=== PATIENT | female | born 1955 | race Caucasian/White ===

== ENCOUNTER 2017-10-22 08:57 | Outpatient (CLI) | payer OTHER ==
[~2017-10-22 08:57] MED LIST: ASPI-611 PO; MULT-1179 PO; ROSU10TA PO
[2017-10-22 11:59] LABS: ANION GAP 8 (8-16); CHLORIDE 106 MMOL/L (99-107); GLUCOSE 90 MG/DL (70-104); POTASSIUM 4.3 MMOL/L (3.5-5.1); SODIUM 143 MMOL/L (135-145); TOTAL CARBON DIOXIDE 29.3 MMOL/L (24-32)
[2017-10-22 12:00] LABS: ALANINE AMINOTRANSFERASE 23 U/L (12-78); ALBUMIN 3.5 G/DL (3.4-5.0); ALKALINE PHOSPHATASE 45 IU/L (46-116); ASPARTATE AMINO TRANSFERASE 16 U/L (10-37); BILIRUBIN,TOTAL 0.4 MG/DL (0.1-1.0); BLOOD UREA NITROGEN 13 MG/DL (7-18); BUN/CREATININE RATIO 16.7 (6.6-38.0); CALCIUM 9.1 MG/DL (8.5-10.1); CHOL/HDL RATIO 3.3 (0.00-4.99); CHOLESTEROL 287 MG/DL (0-200); CREATININE 0.78 MG/DL (0.40-0.90); HDL CHOLESTEROL 87 MG/DL (35-60); LDL CHOLESTEROL 185 MG/DL (50-100); TOTAL PROTEIN 6.9 G/DL (6.4-8.2); TRIGLYCERIDES 46 MG/DL (20-135); eGFR 75 ML/MIN
== END 2017-10-22 23:59 | disposition home or self-care (01) ==
LOC: LAB 08:57
PROVIDERS: ATTEND Physician Assistant Medical
DX: E78.5 Hyperlipidemia, unspecified (principal); R79.89 Other specified abnormal findings of blood chemistry; Z87.891 Personal history of nicotine dependence
CPT/HCPCS: 36415; 80053; 80061

== ENCOUNTER 2017-10-22 09:02 | Outpatient (CLI) | payer OTHER ==
[2017-10-22 11:47] LABS: PHOSPHORUS 4.4 MG/DL (2.3-4.5)
== END 2017-10-22 23:59 | disposition home or self-care (01) ==
LOC: LAB 09:02
PROVIDERS: ATTEND Physician Assistant
DX: E55.9 Vitamin D deficiency, unspecified (principal); E78.01 Familial hypercholesterolemia; K90.9 Intestinal malabsorption, unspecified; M81.0 Age-related osteoporosis without current pathological fracture; Z87.891 Personal history of nicotine dependence
CPT/HCPCS: 36415; 82306; 82607; 82746; 83735; 84100

== ENCOUNTER 2018-04-16 08:35 | Outpatient (CLI) | payer OTHER ==
[2018-04-16 11:00] LABS: ALANINE AMINOTRANSFERASE 21 U/L (12-78); ALBUMIN 3.8 G/DL (3.4-5.0); ALKALINE PHOSPHATASE 51 IU/L (46-116); ANION GAP 8 (8-16); ASPARTATE AMINO TRANSFERASE 20 U/L (10-37); BILIRUBIN,TOTAL 0.5 MG/DL (0.1-1.0); BLOOD UREA NITROGEN 11 MG/DL (7-18); BUN/CREATININE RATIO 14.9 (6.6-38.0); CALCIUM 9.3 MG/DL (8.5-10.1); CHLORIDE 105 MMOL/L (99-107); CHOL/HDL RATIO 4.2 (0.00-4.99); CHOLESTEROL 366 MG/DL (0-200); CREATININE 0.74 MG/DL (0.40-0.90); GLUCOSE 92 MG/DL (70-104); HDL CHOLESTEROL 87 MG/DL (35-60); LDL CHOLESTEROL 254 MG/DL (50-100); POTASSIUM 4.2 MMOL/L (3.5-5.1); SODIUM 142 MMOL/L (135-145); TOTAL PROTEIN 7.5 G/DL (6.4-8.2); TRIGLYCERIDES 67 MG/DL (20-135); eGFR 79 ML/MIN
== END 2018-04-16 23:59 | disposition home or self-care (01) ==
LOC: LAB 08:35
PROVIDERS: ATTEND Internal Medicine Cardiovascular Disease
DX: E78.5 Hyperlipidemia, unspecified (principal); Z72.89 Other problems related to lifestyle; Z87.891 Personal history of nicotine dependence; Z88.5 Allergy status to narcotic agent; Z96.651 Presence of right artificial knee joint; Z98.890 Other specified postprocedural states
CPT/HCPCS: 36415; 80053; 80061

== ENCOUNTER 2018-04-29 12:49 | Outpatient (CLI) | payer OTHER | END 2018-04-29 23:59 | disposition home or self-care (01) | LOC: CARD DIAG 12:49 | PROVIDERS: ATTEND Internal Medicine Cardiovascular Disease | DX: I08.0 Rheumatic disorders of both mitral and aortic valves (principal); E78.49 Other hyperlipidemia; R07.89 Other chest pain; Z96.651 Presence of right artificial knee joint; Z96.662 Presence of left artificial ankle joint; Z79.82 Long term (current) use of aspirin; Z87.891 Personal history of nicotine dependence | CPT/HCPCS: 93306 ==

== ENCOUNTER 2018-06-17 12:43 | Outpatient (CLI) | payer OTHER | END 2018-06-17 23:59 | disposition home or self-care (01) | LOC: VAS 12:43 | PROVIDERS: ATTEND Internal Medicine Cardiovascular Disease | DX: R55 Syncope and collapse (principal); E78.5 Hyperlipidemia, unspecified; Z87.891 Personal history of nicotine dependence; Z96.651 Presence of right artificial knee joint; Z72.89 Other problems related to lifestyle; Z98.890 Other specified postprocedural states; Z86.73 Personal history of transient ischemic attack (TIA), and cerebral infarction without residual deficits; Z88.5 Allergy status to narcotic agent; Z88.8 Allergy status to other drugs, medicaments and biological substances | CPT/HCPCS: 93880 ==

== ENCOUNTER 2018-08-06 09:04 | Outpatient (CLI) | payer OTHER ==
[~2018-08-06] VITALS: Ht 165.1 cm; Wt 63.0 kg
[2018-08-06] MEDS ORDERED: aminophylline 250mg/10ml inj. IV PRN (10:20)
[2018-08-06] MEDS ORDERED: nitroGLYCERIN 0.4mg SUBLingual tab SL PRN (10:20)
[2018-08-06] MEDS ORDERED: aminophylline inj. 10 ML IV ONE (11:20)
[2018-08-06] MEDS ORDERED: regadenoson 0.4mg/5ml syringe IV ONE (11:20)
[2018-08-06 11:30] VITALS: BP 130/50
[2018-08-06 11:49] VITALS: BP_SYST 120; BP_SYST 141; BP_DIAS 58; BP_DIAS 76
[2018-08-06] MEDS: regadenoson 0.4mg/5ml syringe IV PRN ×2 (11:49→12:46)
[2018-08-06 11:50] VITALS: BP_SYST 118; BP_DIAS 58; BP_DIAS 59
[2018-08-06 11:51] VITALS: BP_SYST 113; BP_SYST 119; BP_DIAS 52; BP_DIAS 56
[2018-08-06 11:52] VITALS: BP 107/56
[2018-08-06 11:53] VITALS: BP_SYST 116; BP_SYST 121; BP_DIAS 57; BP_DIAS 58
== END 2018-08-06 23:59 | disposition home or self-care (01) ==
LOC: RAD 09:04
PROVIDERS: ATTEND Internal Medicine Cardiovascular Disease
DX: R07.9 Chest pain, unspecified (principal); Z98.890 Other specified postprocedural states; Z88.5 Allergy status to narcotic agent
CPT/HCPCS: 78452; 93017; A9500; J0280

== ENCOUNTER 2018-08-06 09:07 | Outpatient (CLI) | payer OTHER ==
[2018-08-06 11:05] LABS: CLARITY,URINE SLIGHTLY CLOUDY (Clear); COLOR,URINE YELLOW (Yellow); GLUCOSE, URINE NEGATIVE (Neg); KETONES,URINE NEGATIVE (Neg); LEUKOCYTE ESTERASE ,URINE NEGATIVE (Neg); NITRITES, URINE NEGATIVE (Neg); OCCULT BLOOD,URINE NEGATIVE (Neg); PH,URINE 5.5 (4.8-8.0); PROTEIN,URINE NEGATIVE (Neg)
[2018-08-06 11:07] LABS: UA COLLECTION TYPE CLN CATCH MIDSTREAM
[2018-08-06 11:09] LABS: BASOPHILS # (AUTO) 0.1 X10'3 (0-0.2); BASOPHILS % (AUTO) 1.7 % (0-1); EOSINOPHILS # (AUTO) 0.2 X10'3 (0-0.9); EOSINOPHILS % (AUTO) 4.7 % (0-6); HEMATOCRIT 35.6 % (35.0-45.0); HEMOGLOBIN 11.7 g/dl (12.0-16.0); LYMPHOCYTES # (AUTO) 1.3 X10'3 (1.1-4.8); MEAN CORPUSCULAR HEMOGLOBIN 28.1 PG (27.0-31.0); MEAN CORPUSCULAR VOLUME 85.1 FL (78-98); MEAN PLATELET VOLUME 9.2 FL (7.4-10.4); MONOCYTES # (AUTO) 0.5 X10'3 (0-0.9); MONOCYTES % (AUTO) 9.7 % (2-12); NEUTROPHILS # (AUTO) 2.9 X10'3 (1.8-7.7); NEUTROPHILS % (AUTO) 57.9 % (42-75); PLATELET COUNT 290 X10'3 (140-440); RED BLOOD COUNT 4.18 X10'6 (4.20-5.60); RED CELL DISTRIBUTION WIDTH 14.1 % (11.5-14.5)
[2018-08-06 11:19] LABS: BACTERIA,URINE 1+ /HPF (Neg); MUCUS STRANDS MODERATE /LPF (Neg); RBC,URINE 0-2 /HPF (0-2); SQUAMOUS EPITHELIAL CELL,UR MANY /LPF (FEW); WBC,URINE 0-4 /HPF (0-4)
[2018-08-06 11:30] VITALS: BP 130/50
[2018-08-06 11:31] LABS: ALANINE AMINOTRANSFERASE 22 U/L (12-78); ALBUMIN 3.7 G/DL (3.4-5.0); ALBUMIN/GLOBULIN RATIO 1.1 (1.1-1.5); ALKALINE PHOSPHATASE 48 IU/L (46-116); ANION GAP 6 (8-16); ASPARTATE AMINO TRANSFERASE 18 U/L (10-37); BILIRUBIN,TOTAL 0.5 MG/DL (0.1-1.0); BLOOD UREA NITROGEN 16 MG/DL (7-18); BUN/CREATININE RATIO 21.1 (6.6-38.0); CALCIUM 9.2 MG/DL (8.5-10.1); CHLORIDE 105 MMOL/L (99-107); CHOL/HDL RATIO 4.3 (0.00-4.99); CHOLESTEROL 356 MG/DL (0-200); CREATININE 0.76 MG/DL (0.40-0.90); GLUCOSE 88 MG/DL (70-104); HDL CHOLESTEROL 82 MG/DL (35-60); LDL CHOLESTEROL 258 MG/DL (50-100); SODIUM 140 MMOL/L (135-145); TOTAL CARBON DIOXIDE 29.3 MMOL/L (24-32); TOTAL PROTEIN 7.2 G/DL (6.4-8.2); TRIGLYCERIDES 75 MG/DL (20-135); eGFR 77 ML/MIN
[2018-08-06 11:49] VITALS: BP_SYST 120; BP_SYST 141; BP_DIAS 58; BP_DIAS 76
[2018-08-06 11:50] VITALS: BP_SYST 118; BP_DIAS 58; BP_DIAS 59
[2018-08-06 11:51] VITALS: BP_SYST 113; BP_SYST 119; BP_DIAS 52; BP_DIAS 56
[2018-08-06 11:52] VITALS: BP 107/56
[2018-08-06 11:53] VITALS: BP_SYST 116; BP_SYST 121; BP_DIAS 57; BP_DIAS 58
--- NOTE | 2018-08-06 12:47 | NUR ---
Accidentally charted Lexiscan procedure under the LAB visit. Re-entered Lexiscan procedure under visit ending in [id number].
== END 2018-08-06 23:59 | disposition home or self-care (01) ==
LOC: LAB 09:07
PROVIDERS: ATTEND Family Medicine
DX: E78.5 Hyperlipidemia, unspecified (principal); I35.0 Nonrheumatic aortic (valve) stenosis; M81.0 Age-related osteoporosis without current pathological fracture; Z76.89 Persons encountering health services in other specified circumstances; Z72.89 Other problems related to lifestyle; Z98.84 Bariatric surgery status; Z88.5 Allergy status to narcotic agent
CPT/HCPCS: 80053; 80061; 81001; 82607; 82746; 84439; 84443; 85025

== ENCOUNTER 2018-09-26 09:07 | Day surgery (SDC) | payer OTHER ==
[~2018-09-26] VITALS: Ht 165.1 cm; Wt 61.4 kg
[~2018-09-26 09:07] MED LIST changes: -ROSU10TA PO; +ROSU10TA2 PO
[2018-09-26 09:15] VITALS: BP 113/82
[2018-09-26] MEDS ORDERED: MIDAZolam 5mg/5ml vial ONE (09:17)
[2018-09-26] MEDS ORDERED: fentaNYL/PF 50MCG/1 ML 2ML syringe ONE (09:17)
[2018-09-26] MEDS ORDERED: ASCO500C15 PO (09:34)
[2018-09-26 10:29] VITALS: BP 122/43
[2018-09-26 10:34] VITALS: BP 82/40
[2018-09-26 10:43] VITALS: BP 89/43
[2018-09-26 10:52] VITALS: BP 147/71
[2018-09-26 11:02] VITALS: BP 106/67
== END 2018-09-26 11:19 | disposition home or self-care (01) ==
LOC: GI LAB 09:07
PROVIDERS: ATTEND Internal Medicine Gastroenterology
DX: Z12.11 Encounter for screening for malignant neoplasm of colon (principal); D12.5 Benign neoplasm of sigmoid colon; D12.2 Benign neoplasm of ascending colon; K57.30 Diverticulosis of large intestine without perforation or abscess without bleeding; Z98.84 Bariatric surgery status
CPT/HCPCS: 45380; 45385; 99152; J2250; J3010; J7030; 99153; A4620; C1773

== ENCOUNTER → 2018-10-09 | Outpatient (CLI) | payer OTHER ==
[~2018-10-09] MED LIST changes: +ASCO500C15 PO; -ASPI-611 PO; -MULT-1179 PO; -ROSU10TA2 PO
== END | disposition home or self-care (01) ==
LOC: RAD 12:02
PROVIDERS: ATTEND Registered Nurse
DX: M19.072 Primary osteoarthritis, left ankle and foot (principal); E78.5 Hyperlipidemia, unspecified; Z88.5 Allergy status to narcotic agent; Z88.2 Allergy status to sulfonamides
CPT/HCPCS: 73610

== ENCOUNTER 2019-01-31 05:30 | Emergency (ER) | payer OTHER ==
[~2019-01-31] VITALS: Ht 165.1 cm; Wt 63.0 kg
[2019-01-31] MEDS ORDERED: proparacaine 0.5% ophthalmic drops 15ml EACHEYE ONE (05:40)
[2019-01-31] MEDS ORDERED: HYDR-4353 PO (05:59)
[2019-01-31] MEDS ORDERED: GENOO OP (05:59)
[2019-01-31] MEDS ORDERED: levoFLOXACIN-Levaquin 750MG/D5 150 ML IV STA (06:04)
[2019-01-31 06:05] VITALS: BP 123/68
== END 2019-01-31 06:07 | disposition home or self-care (01) ==
LOC: ER 05:31
DX: S05.02XA Injury of conjunctiva and corneal abrasion without foreign body, left eye, initial encounter (principal); Z88.5 Allergy status to narcotic agent; Z79.899 Other long term (current) drug therapy; X58.XXXA Exposure to other specified factors, initial encounter; Y93.89 Activity, other specified; Y92.89 Other specified places as the place of occurrence of the external cause; Y99.9 Unspecified external cause status
CPT/HCPCS: 99283

== ENCOUNTER 2019-04-14 09:01 | Outpatient (CLI) | payer OTHER ==
[~2019-04-14 09:01] MED LIST changes: +GENOO OP
[2019-04-14 09:41] LABS: BASOPHILS # (AUTO) 0.1 X10'3 (0-0.2); BASOPHILS % (AUTO) 1.8 % (0-1); EOSINOPHILS # (AUTO) 0.2 X10'3 (0-0.9); EOSINOPHILS % (AUTO) 3.9 % (0-6); HEMATOCRIT 36.1 % (35.0-45.0); HEMOGLOBIN 11.8 g/dl (12.0-16.0); LYMPHOCYTES # (AUTO) 1.3 X10'3 (1.1-4.8); MEAN CORPUSCULAR HEMOGLOBIN 27.6 PG (27.0-31.0); MEAN CORPUSCULAR HGB CONC 32.6 g/dL (33.0-36.5); MEAN CORPUSCULAR VOLUME 84.7 FL (78-98); MEAN PLATELET VOLUME 8.9 FL (7.4-10.4); MONOCYTES # (AUTO) 0.5 X10'3 (0-0.9); MONOCYTES % (AUTO) 9.7 % (2-12); NEUTROPHILS # (AUTO) 2.8 X10'3 (1.8-7.7); NEUTROPHILS % (AUTO) 57.6 % (42-75); PLATELET COUNT 261 X10'3 (140-440); RED BLOOD COUNT 4.26 X10'6 (4.20-5.60); RED CELL DISTRIBUTION WIDTH 15.4 % (11.5-14.5); WHITE BLOOD COUNT 4.9 X10'3 (4.5-11.0)
[2019-04-14 09:43] LABS: CLARITY,URINE CLEAR (Clear); COLOR,URINE YELLOW (Yellow); GLUCOSE, URINE NEGATIVE (Neg); KETONES,URINE NEGATIVE (Neg); LEUKOCYTE ESTERASE ,URINE NEGATIVE (Neg); NITRITES, URINE NEGATIVE (Neg); OCCULT BLOOD,URINE NEGATIVE (Neg); PROTEIN,URINE NEGATIVE (Neg); UROBILINOGEN,URINE 0.2 E.U/dL (0.2-1.0)
[2019-04-14 09:50] LABS: UA COLLECTION TYPE CLN CATCH MIDSTREAM
[2019-04-14 10:21] LABS: % IRON SATURATION 8 % (11-46); IRON 38 UG/DL (49-151); TOTAL IRON BINDING CAPACITY 450 UG/DL (259-388)
[2019-04-14 10:33] LABS: ALANINE AMINOTRANSFERASE 17 U/L (12-78); ALBUMIN 3.8 G/DL (3.4-5.0); ALKALINE PHOSPHATASE 53 IU/L (46-116); ANION GAP 9 (8-16); ASPARTATE AMINO TRANSFERASE 20 U/L (10-37); BILIRUBIN,TOTAL 0.3 MG/DL (0.1-1.0); BLOOD UREA NITROGEN 18 MG/DL (7-18); CALCIUM 8.9 MG/DL (8.5-10.1); CHLORIDE 104 MMOL/L (99-107); CHOL/HDL RATIO 4.9 (0.00-4.99); CHOLESTEROL 358 MG/DL (0-200); CREATININE 0.75 MG/DL (0.40-0.90); FERRITIN 10 NG/ML (8-252); GLUCOSE 87 MG/DL (70-104); HDL CHOLESTEROL 73 MG/DL (35-60); LDL CHOLESTEROL 262 MG/DL (50-100); POTASSIUM 4.1 MMOL/L (3.5-5.1); SODIUM 141 MMOL/L (135-145); TOTAL CARBON DIOXIDE 28.5 MMOL/L (24-32); TOTAL PROTEIN 7.7 G/DL (6.4-8.2); TRIGLYCERIDES 61 MG/DL (20-135); eGFR 78 ML/MIN
== END 2019-04-14 23:59 | disposition home or self-care (01) ==
LOC: LAB 09:01
PROVIDERS: ATTEND Family Medicine
DX: E16.2 Hypoglycemia, unspecified (principal); R10.10 Upper abdominal pain, unspecified; E28.39 Other primary ovarian failure; E78.5 Hyperlipidemia, unspecified; R53.83 Other fatigue
CPT/HCPCS: 36415; 80053; 80061; 81003; 82607; 82728; 82746; 83540; 83550; 84439; 84443; 85025

== ENCOUNTER 2019-04-16 08:48 | Outpatient (CLI) | payer OTHER | END 2019-04-16 23:59 | disposition home or self-care (01) | LOC: RAD 08:48 | PROVIDERS: ATTEND Family Medicine | DX: R10.10 Upper abdominal pain, unspecified (principal); Z90.49 Acquired absence of other specified parts of digestive tract | CPT/HCPCS: 76700 ==

== ENCOUNTER 2019-07-07 13:34 | Outpatient (CLI) | payer OTHER | END 2019-07-07 23:59 | disposition home or self-care (01) | LOC: CARD DIAG 13:34 | PROVIDERS: ATTEND Internal Medicine Cardiovascular Disease | DX: I35.0 Nonrheumatic aortic (valve) stenosis (principal) | CPT/HCPCS: 93306 ==

== ENCOUNTER 2019-08-07 14:13 | Emergency (ER) | payer OTHER ==
[~2019-08-07] VITALS: Ht 165.1 cm; Wt 64.0 kg
[2019-08-07 14:22] VITALS: BP 110/65
[2019-08-07] MEDS ORDERED: pilocarpine 2% ophthalmic drops 15ml RIGHTEYE ONE (15:35)
== END 2019-08-07 16:48 | disposition home or self-care (01) ==
LOC: ER 14:14
DX: H53.8 Other visual disturbances (principal); Z88.5 Allergy status to narcotic agent; Z79.899 Other long term (current) drug therapy
CPT/HCPCS: 99283

== ENCOUNTER 2019-08-11 09:55 | Outpatient (CLI) | payer OTHER ==
[2019-08-11 11:07] LABS: BASOPHILS % (AUTO) 0.6 % (0-1); EOSINOPHILS # (AUTO) 0.2 X10'3 (0-0.9); EOSINOPHILS % (AUTO) 3.1 % (0-6); HEMATOCRIT 36.9 % (35.0-45.0); HEMOGLOBIN 12.2 g/dl (12.0-16.0); LYMPHOCYTES # (AUTO) 1.3 X10'3 (1.1-4.8); LYMPHOCYTES % (AUTO) 23.9 % (21-51); MEAN CORPUSCULAR HEMOGLOBIN 28.2 PG (27.0-31.0); MEAN CORPUSCULAR VOLUME 85.5 FL (78-98); MEAN PLATELET VOLUME 9.2 FL (7.4-10.4); MONOCYTES # (AUTO) 0.4 X10'3 (0-0.9); MONOCYTES % (AUTO) 6.9 % (2-12); NEUTROPHILS # (AUTO) 3.5 X10'3 (1.8-7.7); NEUTROPHILS % (AUTO) 65.5 % (42-75); PLATELET COUNT 292 X10'3 (140-440); RED BLOOD COUNT 4.32 X10'6 (4.20-5.60); RED CELL DISTRIBUTION WIDTH 14.2 % (11.5-14.5); WHITE BLOOD COUNT 5.3 X10'3 (4.5-11.0)
[2019-08-11 11:40] LABS: % IRON SATURATION 25 % (11-46); IRON 105 UG/DL (49-151); TOTAL IRON BINDING CAPACITY 415 UG/DL (259-388)
== END 2019-08-11 23:59 | disposition home or self-care (01) ==
LOC: LAB 09:55
PROVIDERS: ATTEND Family Medicine
DX: E53.8 Deficiency of other specified B group vitamins (principal); E78.5 Hyperlipidemia, unspecified
CPT/HCPCS: 36415; 82607; 82746; 83540; 83550; 85025

== ENCOUNTER 2020-04-22 11:36 | Outpatient (CLI) | payer BC ==
[~2020-04-22 11:36] MED LIST changes: -ASCO500C15 PO; +ASCO500C18 PO
[2020-04-22 12:42] LABS: CLARITY,URINE CLEAR (Clear); COLOR,URINE YELLOW (Yellow); GLUCOSE, URINE NEGATIVE (Neg); KETONES,URINE NEGATIVE (Neg); LEUKOCYTE ESTERASE ,URINE NEGATIVE (Neg); NITRITES, URINE NEGATIVE (Neg); OCCULT BLOOD,URINE NEGATIVE (Neg); PH,URINE 5.5 (4.8-8.0); PROTEIN,URINE NEGATIVE (Neg); UA COLLECTION TYPE CLN CATCH MIDSTREAM; UROBILINOGEN,URINE 0.2 E.U/dL (0.2-1.0)
[2020-04-22 13:02] LABS: BASOPHILS # (AUTO) 0.1 X10'3 (0-0.2); EOSINOPHILS # (AUTO) 0.4 X10'3 (0-0.9); EOSINOPHILS % (AUTO) 5.5 % (0-6); HEMATOCRIT 39.1 % (35.0-45.0); LYMPHOCYTES # (AUTO) 2.1 X10'3 (1.1-4.8); LYMPHOCYTES % (AUTO) 28.4 % (21-51); MEAN CORPUSCULAR HEMOGLOBIN 30.2 PG (27.0-31.0); MEAN CORPUSCULAR HGB CONC 33.2 g/dL (33.0-36.5); MEAN PLATELET VOLUME 9.5 FL (7.4-10.4); MONOCYTES # (AUTO) 0.6 X10'3 (0-0.9); MONOCYTES % (AUTO) 8.7 % (2-12); NEUTROPHILS # (AUTO) 4.1 X10'3 (1.8-7.7); NEUTROPHILS % (AUTO) 56.4 % (42-75); PLATELET COUNT 306 X10'3 (140-440); RED CELL DISTRIBUTION WIDTH 13.3 % (11.5-14.5); WHITE BLOOD COUNT 7.3 X10'3 (4.5-11.0)
[2020-04-22 13:23] LABS: % IRON SATURATION 36 % (11-46); IRON 128 UG/DL (49-151); TOTAL IRON BINDING CAPACITY 358 UG/DL (259-388)
[2020-04-22 13:35] LABS: ALANINE AMINOTRANSFERASE 36 U/L (12-78); ALBUMIN 4.3 G/DL (3.4-5.0); ALBUMIN/GLOBULIN RATIO 1.2 (1.1-1.5); ALKALINE PHOSPHATASE 53 IU/L (46-116); ANION GAP 6 (8-16); ASPARTATE AMINO TRANSFERASE 27 U/L (10-37); BILIRUBIN,TOTAL 0.4 MG/DL (0.1-1.0); BLOOD UREA NITROGEN 12 MG/DL (7-18); BUN/CREATININE RATIO 15.2 (6.6-38.0); CALCIUM 9.1 MG/DL (8.5-10.1); CHLORIDE 104 MMOL/L (99-107); CHOLESTEROL 376 MG/DL (0-200); CREATININE 0.79 MG/DL (0.40-0.90); FERRITIN 46 NG/ML (8-252); GLUCOSE 91 MG/DL (70-104); HDL CHOLESTEROL 93 MG/DL (35-60); LDL CHOLESTEROL 264 MG/DL (50-100); POTASSIUM 3.8 MMOL/L (3.5-5.1); SODIUM 141 MMOL/L (135-145); TOTAL CARBON DIOXIDE 31.4 MMOL/L (24-32); TOTAL PROTEIN 7.9 G/DL (6.4-8.2); TRIGLYCERIDES 60 MG/DL (20-135); eGFR 73 ML/MIN
== END 2020-04-22 23:59 | disposition home or self-care (01) ==
LOC: LAB 11:36
PROVIDERS: ATTEND Family Medicine
DX: E78.5 Hyperlipidemia, unspecified (principal); R74.8 Abnormal levels of other serum enzymes; E53.8 Deficiency of other specified B group vitamins; E16.2 Hypoglycemia, unspecified; R53.83 Other fatigue; E28.39 Other primary ovarian failure; N30.90 Cystitis, unspecified without hematuria; E07.9 Disorder of thyroid, unspecified; R10.10 Upper abdominal pain, unspecified
CPT/HCPCS: 36415; 80053; 80061; 81003; 82607; 82728; 82746; 83540; 83550; 84439; 84443; 85025

== ENCOUNTER 2020-05-22 12:35 | Emergency (ER) | payer OTHER ==
[~2020-05-22] VITALS: Ht 165.1 cm; Wt 64.1 kg
[2020-05-22 12:54] VITALS: BP 140/75
== END 2020-05-22 13:36 | disposition home or self-care (01) ==
LOC: ER 12:35
DX: S69.80XA Other specified injuries of unspecified wrist, hand and finger(s), initial encounter (principal); Z98.890 Other specified postprocedural states; Z88.5 Allergy status to narcotic agent; Z88.8 Allergy status to other drugs, medicaments and biological substances; Z79.899 Other long term (current) drug therapy; X58.XXXA Exposure to other specified factors, initial encounter; Y93.89 Activity, other specified; Y92.89 Other specified places as the place of occurrence of the external cause; Y99.8 Other external cause status
CPT/HCPCS: 99281

== ENCOUNTER 2020-06-25 05:37 | Day surgery (SDC) | payer BC, MEDICARE ==
[2020-06-14 11:33] LABS: BASOPHILS # (AUTO) 0.1 X10'3 (0-0.2); BASOPHILS % (AUTO) 1.1 % (0-1); EOSINOPHILS # (AUTO) 0.3 X10'3 (0-0.9); EOSINOPHILS % (AUTO) 4.6 % (0-6); LYMPHOCYTES # (AUTO) 1.6 X10'3 (1.1-4.8); LYMPHOCYTES % (AUTO) 25.4 % (21-51); MEAN CORPUSCULAR HEMOGLOBIN 29.9 PG (27.0-31.0); MEAN CORPUSCULAR HGB CONC 32.6 g/dL (33.0-36.5); MEAN CORPUSCULAR VOLUME 91.9 FL (78-98); MONOCYTES # (AUTO) 0.5 X10'3 (0-0.9); MONOCYTES % (AUTO) 8.1 % (2-12); NEUTROPHILS # (AUTO) 3.7 X10'3 (1.8-7.7); NEUTROPHILS % (AUTO) 60.8 % (42-75); PRE OP HEMATOCRIT 37.4 % (35.0-45.0); PRE OP HEMOGLOBIN 12.2 g/dL (12.0-16.0); PRE OP PLATELET COUNT 307 X10'3 (140-440); RED BLOOD COUNT 4.07 X10'6 (4.20-5.60)
[2020-06-14 11:45] LABS: ALBUMIN 3.7 G/DL (3.4-5.0); ALBUMIN/GLOBULIN RATIO 1.1 (1.1-1.5); ALKALINE PHOSPHATASE 49 IU/L (46-116); BLOOD UREA NITROGEN 18 MG/DL (7-18); BUN/CREATININE RATIO 23.7 (6.6-38.0); CALCIUM 8.9 MG/DL (8.5-10.1); CHLORIDE 106 MMOL/L (99-107); CREATININE 0.76 MG/DL (0.40-0.90); PRE OP ALT 43 U/L (30-65); PRE OP ANION GAP 7 (8-16); PRE OP AST 28 U/L (10-37); PRE OP BILIRUB, TOTAL 0.5 MG/DL (0.0-1.0); PRE OP GLUCOSE 83 MG/DL (70-104); PRE OP POTASSIUM 4.2 MMOL/L (3.4-5.1); PRE OP SODIUM 143 MMOL/L (135-145); TOTAL CARBON DIOXIDE 30.1 MMOL/L (24-32); TOTAL PROTEIN 7.2 G/DL (6.4-8.2); eGFR 76 ML/MIN
[2020-06-25] VITALS (18 sets, daily range): BP systolic 94–158; BP diastolic 50–72
[~2020-06-25] VITALS: Ht 165.1 cm; Wt 62.6 kg
[~2020-06-25 05:37] MED LIST changes: +ACET-2615 PO; -ASCO500C18 PO; +ESTR42.53 VG; -GENOO OP; +VANCOMYCIN INJ 1000 MG in NORMAL SALINE 250ml IV.SOLN IV ONE; +ceFAZolin 2gm in dextrose, iso 50 ML IV ONE; +famotidine 20mg tablet PO ONE; +ringers solution, lacted 1,000 ML IV SCH
[2020-06-25] MEDS ORDERED: VANCOMYCIN INJ 1000 MG in NORMAL SALINE 250ml IV.SOLN IV ONE (06:44)
[2020-06-25] MEDS ORDERED: BUPIVAcaine/PF 2.5 mg/ml (0.25%) 30ml vial ONE (06:50)
[2020-06-25] MEDS ORDERED: bacitracin 15gm ointment TP ONE (06:50)
[2020-06-25] MEDS ORDERED: BUPIVAcaine/PF 2.5mg/ml (0.25%) 10ml vial ONE (06:55)
[2020-06-25] MEDS ORDERED: BUPIVACAINE liposomal/PF 13.3 MG/ML vial IM ONE (06:56)
[2020-06-25] MEDS ORDERED: MIDAZolam 1mg/ml 10ml vial ONE (06:59)
[2020-06-25] MEDS ORDERED: fentaNYL/PF 50MCG/1 ML 2ML syringe ONE (06:59)
[2020-06-25] MEDS ORDERED: LIDOcaine 2% (20mg/ml) 5ml vial ONE (07:00)
[2020-06-25] MEDS ORDERED: propofol inj 20 ML IV ONE (07:00)
[2020-06-25 07:03] LABS: CLARITY,URINE CLEAR (Clear); COLOR,URINE YELLOW (Yellow); GLUCOSE, URINE NEGATIVE (Neg); KETONES,URINE NEGATIVE (Neg); LEUKOCYTE ESTERASE ,URINE NEGATIVE (Neg); NITRITES, URINE NEGATIVE (Neg); OCCULT BLOOD,URINE NEGATIVE (Neg); PH,URINE 5.5 (4.8-8.0); PROTEIN,URINE NEGATIVE (Neg); UROBILINOGEN,URINE 0.2 E.U/dL (0.2-1.0)
[2020-06-25 07:05] LABS: UA COLLECTION TYPE NON-SPECIFIED
[2020-06-25] MEDS ORDERED: fentaNYL/PF 50MCG/1 ML 2ML syringe IV PRN ×2 (07:10)
[2020-06-25] MEDS ORDERED: ondansetron/PF 4mg/2ml inj IV PRN (07:10)
[2020-06-25] MEDS ORDERED: labetalol 20mg/4ml (5mg/ml) syringe IV PRN (07:10)
[2020-06-25] MEDS ORDERED: hydrALAZINE 20mg/ml inj. IV PRN (07:10)
[2020-06-25] MEDS ORDERED: ringers solution, lacted 1,000 ML IV SCH (07:10)
[2020-06-25] MEDS ORDERED: meperidine/PF 25mg/ml syringe IV PRN (07:10)
[2020-06-25] MEDS ORDERED: sevoflurane 250ml liquid IH ONE (07:22)
[2020-06-25] MEDS ORDERED: ROPIVAcaine 0.2% (10 MG/5 ML) BOLUS INJECTION POPLITEAL PRN (08:35)
[2020-06-25] MEDS ORDERED: dexamethasone sod phosphate 4mg/ml inj. ONE (08:58)
[2020-06-25] MEDS ORDERED: ondansetron/PF 4mg/2ml inj ONE (08:58)
[2020-06-25] MEDS ORDERED: ROPIVAcaine 0.2%/PF PUMP/bolus 550 ML POPLITEAL SCH (09:15)
[2020-06-25] MEDS ORDERED: succinylcholine 20mg/ml inj IV ONE (09:51)
--- NOTE | 2020-06-25 10:12 | NUR ---
Received from OR via BED, accompanied by Anesthesiologist DR ROUSE and report given by Anesthesiologist. PT DROWSY, LEFT FOOT/ANKLE UP TO TOP OF CALF W/DRSG W/SPLINT W/MELANIE WRAP COVERING CDI. 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 Addendum: 06/25/20 at 1031 by Dee Neumann RN Amended: Links added.
--- NOTE | 2020-06-25 10:20 | NUR ---
PT C/O PAIN TO ANKLE AND STATES HER EYES HURT AND FEEL LIKE THEY ARE SCRATCHED, DISCUSSED W/DR PERLA, ORDERS RECEIVED FOR EYE OINTMENT. DEMEROL GIVEN AND ON-QUE ATTACHED AND BOLUS GIVEN. Addendum: 06/25/20 at 1043 by Dee Neumann RN Amended: Links added.
[2020-06-25] MEDS ORDERED: mineral oil/petrolatum ophthal oint EACHEYE SCH (10:25)
[2020-06-25] MEDS ORDERED: acetaminophen 1,000mg/100ml IV 100 ML IV ONE (10:25)
[2020-06-25] MEDS: meperidine/PF 25mg/ml syringe IV PRN ×2 (10:46→11:06)
[2020-06-25] MEDS ORDERED: oxyCODONE/APAP 5-325mg tablet PO ONE (12:15)
--- NOTE | 2020-06-25 13:12 | NUR ---
DR CASANOVA IN TO SEE PT, UPDATED. DR ROUSE IN TO SEE PT, UPDATED, ORDERS GIVEN IF EYE PAIN WORSENS OR PT IS CONCERNED AND PAIN NOT IMPROVING THAT PT NEEDS TO GO TO THE E.R.. PAIN IMPROVED IN LEFT FOOT, D/C INSTRUCTIONS GIVEN AND GONE OVER W/PT WHO VERBALIZED UNDERSTANDING. PT D/CD TO HOME VIA W/C TO PRIVATE VEHICLE W/O INCIDENT. Addendum: 06/25/20 at 1330 by Dee Neumann RN Amended: Links added.
== END 2020-06-25 13:12 | disposition home or self-care (01) ==
LOC: PAS 05:37
PROVIDERS: ATTEND Podiatrist Foot & Ankle Surgery
DX: M19.072 Primary osteoarthritis, left ankle and foot (principal); M25.572 Pain in left ankle and joints of left foot; Z20.822 Contact with and (suspected) exposure to COVID-19; Z79.899 Other long term (current) drug therapy; F41.9 Anxiety disorder, unspecified; Z90.49 Acquired absence of other specified parts of digestive tract; Z98.84 Bariatric surgery status; Z98.890 Other specified postprocedural states; Z87.891 Personal history of nicotine dependence; Z88.5 Allergy status to narcotic agent; G89.18 Other acute postprocedural pain
CPT/HCPCS: 27702; 36415; 64446; 64447; 73600; 76000; 76937; 76942; 80053; 81003; 82948; 85025; 87081; 87635; A6223; C1713; C1776; C9290; J0131; J0330; J1100; J2001; J2175; J2250; J2405; J2704; J2795; J3010; J3370; J3490; J7120; A4618; A6253; A6449; A7000

== ENCOUNTER 2020-09-07 13:12 | Outpatient (CLI) | payer BC, MEDICARE ==
[~2020-09-07 13:12] MED LIST changes: -VANCOMYCIN INJ 1000 MG in NORMAL SALINE 250ml IV.SOLN IV ONE; -ceFAZolin 2gm in dextrose, iso 50 ML IV ONE; -famotidine 20mg tablet PO ONE; -ringers solution, lacted 1,000 ML IV SCH
== END 2020-09-07 23:59 | disposition home or self-care (01) ==
LOC: CARD DIAG 13:12
PROVIDERS: ATTEND Internal Medicine Cardiovascular Disease
DX: I08.8 Other rheumatic multiple valve diseases (principal)
CPT/HCPCS: 93306

== ENCOUNTER 2020-12-04 09:44 | Emergency (ER) | payer MEDICARE, BC ==
[~2020-12-04] VITALS: Ht 165.1 cm; Wt 63.6 kg
[2020-12-04 10:10] VITALS: BP 159/84
[2020-12-04] MEDS ORDERED: ketorolac trometh. 30mg/ml inj. IM ONE (12:30)
[2020-12-04] MEDS ORDERED: CYCL-394 PO (13:05)
== END 2020-12-04 13:14 | disposition home or self-care (01) ==
LOC: EEVIPCON 09:44 → ER 09:44
DX: S39.92XA Unspecified injury of lower back, initial encounter (principal); M25.551 Pain in right hip; Z88.6 Allergy status to analgesic agent; Z88.8 Allergy status to other drugs, medicaments and biological substances; Z79.899 Other long term (current) drug therapy; Z98.890 Other specified postprocedural states; Y08.89XA Assault by other specified means, initial encounter; Y93.89 Activity, other specified; Y92.89 Other specified places as the place of occurrence of the external cause; Y99.8 Other external cause status
CPT/HCPCS: 72100; 73502; 96372; 99284; J1885

== ENCOUNTER 2021-12-06 08:05 | Emergency (ER) | payer MEDICARE, BC ==
[~2021-12-06] VITALS: Ht 165.1 cm; Wt 63.6 kg
[2021-12-06 08:14] VITALS: BP 108/49
[2021-12-06] MEDS ORDERED: HYDROmorphone 1 mg/ml syringe IV ONE ×2 (08:20→09:05)
[2021-12-06] MEDS ORDERED: ondansetron/PF 4mg/2ml inj IV ONE (08:20)
[2021-12-06] MEDS ORDERED: oxyCODONE/APAP 10/325mg tablet PO ONE (09:05)
[2021-12-06] MEDS ORDERED: ONDA4TAB12 PO ×2 (09:27→10:52)
[2021-12-06] MEDS ORDERED: OXYC-150 PO ×2 (09:27→10:52)
== END 2021-12-06 10:00 | disposition home or self-care (01) ==
LOC: ER 08:06 → EEVIPCON 08:06 → ER 10:00
DX: S42.212A Unspecified displaced fracture of surgical neck of left humerus, initial encounter for closed fracture (principal); M25.512 Pain in left shoulder; Z98.890 Other specified postprocedural states; Z88.5 Allergy status to narcotic agent; Z88.8 Allergy status to other drugs, medicaments and biological substances; Z79.899 Other long term (current) drug therapy; W18.09XA Striking against other object with subsequent fall, initial encounter; Y93.89 Activity, other specified; Y92.89 Other specified places as the place of occurrence of the external cause; Y99.8 Other external cause status
CPT/HCPCS: 29105; 73020; 96374; 96375; 96376; 99284; J1170; J2405; A4565